=== PATIENT | female | born 1980 | race Caucasian/White ===

== ENCOUNTER → 2016-04-15 | Outpatient (CLI) | payer OTHER ==
--- NOTE | 2016-04-15 14:41 | US ---
April 15, [address] Caldwell, Thank you for requesting consultation and a follow up ultrasound for your patient, Mrs. Bebo stanley. As you know, Lizzie is a 35 year-old 2, para 1001. Her due date is 05/21/16 by LMP and first trimester ultrasound. Her current gestational age based on this dating is 34 weeks 6 days. Milan sargent is seen today for a follow up assessment of growth and placenta location. At her last ultrasound s he had a low lying placenta 0.6-1.4 cm from the os. Growth on 03/11 was at the 21st%ile. ULTRASOUND Number of fetuses: 1 Placental location: Anterior with resolution of low lying status. The lowest edge is approximately 2 .1 cm from the internal cervical os. presentation: Cephalic Heart Rate: 144 bpm Cervix: 3.3 cm viewed transvaginally Maximum Vertical Pocket: 3.7 cm Measurements: Biparietal diameter: 76 mm 30 weeks, 5 days Head circumference: 316 mm 35 weeks, 4 days Abdominal circumference: 292 mm 33 weeks, 2 days Femur length: 66 mm 34 weeks, 0 days Humerus length: 55 mm 32 weeks, 0 days Transcerebellar diameter: 46 mm 35 weeks, 0 days Average ultrasound age: 33 weeks, 3 days Estimated weight: 2191 gm weight percentile: 13 % ANATOMY anatomy was previously assessed. Today the following structures were visualized and appeared n ormal: Lateral ventricle, four-chamber view of the heart, left ventricular outlet tract, right ventricular outflow tract, stomach, bladder, and limited views of the kidneys. IMPRESSION: 1. Intrauterine at 34 weeks, 6 days; ANDRADE of 05/21/16. 2. growth is appropriate size for dates. 3. anatomy was previously assessed and today's ultrasound continues to provide reassurance of normal appearing anatomy. 4. Normal amniotic fluid volume 5. Anterior placenta; resolution of low lying RECOMMENDATIONS: I was pleased to review today's ultrasound with your patient. I reassured her that growth is normal at the 13%ile for this gestational age. The amniotic fluid volume is normal. We performed a review of the anatomy which was limited by gestational age, position and acoustic shadowing, but no overt abnormalities were noted. A transvaginal ultrasound was used to better evaluate placenta location to the cervix. The lowest ed ge is at least 2 cm from the os, making it possible for a vaginal attempt. Future ultrasound and consultation is available at your discretion. Thank you for allowing us the opportunity to evaluate your patient. Should you have any further ques tions or concerns please do not hesitate to contact me. Approximately 15 minutes were spent with the patient and 10 minutes were spent in face to face consu ltation. Marizol Lawson MD [employer] Worker Maternal Medicine Diagnosis Department of Obstetrics & Gynecology [facility]
--- NOTE | 2016-04-15 16:51 | US ---
Obstetric Ultrasound History: 35-year-old with low-lying placenta, estimated gestational age of 34 weeks 6 days and EDC o f May 21, 2016. Comparison: OB ultrasound March 11, 2016. Findings: Number: 1 Presentation: Vertex Placental location: Anterior, with interruption of the placenta approximately 2.1 cm superior to the internal os. No previa. Cervix: Closed, measuring 3.3 cm transvaginally Maximum vertical pocket: 3.7 cm Biometry: Biparietal diameter: 76 mm 30 weeks, 5 days Head circumference: 316 mm 35 weeks, 4 days Abdominal circumference: 292 mm 33 weeks, 2 days Femur length: 66 mm 34 weeks, 0 days Humerus length: 55 mm 32 weeks, 0 days Transcerebellar diameter: 46 mm 35 weeks, 0 days Average ultrasound age: 33 weeks, 3 days EDC based on today's average ultrasound age: May 31, 2016 Estimated weight is 2191 gms +/- 320 gms. The estimated weight percentile is 13% based on previous dating (previously 21%). Detailed anatomic survey was previously performed and is not repeated. heart rate is 144. The lateral ventricle, four-chamber heart, outflow tracts, left-sided stomach, and bladder are visu alized and normal. Impression: 1. Living hooper . Size concordant with dates. 2. Anterior placenta with interval resolution of low lying status. Please see separate dictation for consultation performed by Marizol Lawson MD, the same day.
== END ==
LOC: FIMAGING 13:51
PROVIDERS: ATTEND Obstetrics & Gynecology
DX: O44.43 Low lying placenta NOS or without hemorrhage, third trimester (principal); Z3A.34 34 weeks gestation of pregnancy

== ENCOUNTER 2016-04-30 09:47 | Inpatient (IN) | payer OTHER ==
--- NOTE | 2016-04-30 12:07 | US ---
Dear Dr. Caldwell, Thank you for sending your patient, Lizzie Small, to us for a follow-up US to assess interval g rowth. As you know, the patient is a 35 y.o. G2, P1001 at 37 weeks and 0 days with an EDC of 05/21/16 based on LMP and first trimester ultrasound. Her is complicated by measuring size less than dates on her last clinic appointment. Additionally, the patient reports an elevated blood pressure i n clinic yesterday, 140/96. She denies any headaches, scotomata, or RUQ pain. She reports having a re assuring NST in your office yesterday. Today, her blood pressure is elevated at 139/90. The patient denies any uterine contractions, vaginal bleeding, or loss of fluid. She reports excellen t movement. Today, she is without complaints. US FINDINGS: Number of fetuses: 1 Placental location: Anterior, no previa presentation: Cephalic Cervix: 1.9 cm, transabdominally MVP: 3.6 cm TRANG: 5.1 cm Measurements: Biparietal diameter: 81 mm, 2 weeks 3 days Head circumference: 312 mm, 5 weeks 0 days Abdominal circumference: 310 mm, 5 weeks 0 days Femur length: 69 mm, 35 weeks 2 days Humerus length: 57 mm, 3 weeks 0 days Transcerebellar diameter: 48 mm, 36 weeks 0 days Cerebral Lateral Ventricle: 4 mm Cisterna Magna: 4 mm Heart Rate: 149 bpm Average ultrasound age: 34 weeks 3 days Estimated weight: 2504 g weight percentile: 9 % Anatomy: anatomy was previously assessed. Today the following structures were visualized and appeared n ormal: lateral ventricles, posterior fossa, 4CH view, stomach, kidneys, and bladder. Dopplers: Color and spectral analysis was performed. Umbilical Artery 1: S/D ratio 2.6, Normal Umbilical Artery 2: S/D ratio 3.3, At the 95%ile for gestational age Umbilical Vein: No pulsations, Normal Middle Cerebral Artery: -- PI: 1.1 -- CP Ratio: 1.4, Normal IMPRESSION: 1. IUGR: Today, the fetus is in the 9th percentile for gestational age. Doppler assessment is signif icant for one umbilical artery having increased resistance in the 95%ile for gestational age. Resista nce in the second umbilical artery is normal. There is no evidence of brain sparing. The amniotic flu id volume measures 5 cm which is at the lower limits of normal for gestational age. Given the borderl ine abnormal Doppler finding and amniotic fluid volume, I recommend delivery due to gestational age o f 37 weeks. 2. Elevated Blood Pressures: The patient has now had 2 mild range blood pressures >6 hours apart and meets criteria for gestational hypertension. Labs and urine protein testing are needed to exclude pre eclampsia without severe features. Based on a gestational age of 37+0 weeks, I recommend delivery. Given the absence of severe features and reassuring movement on US, the patient was allowed to return home to arrange child & adolescent psychiatrist. She will return to the hospital in the next 4-6 hours for inductio n of labor. A detailed message was left with your office regarding this plan and the above recommenda tions. Thank you again for sending this patient to see us today. Approximately 15 minutes were spent with th is patient today with 12 and minutes of this time spent in direct face to face counseling regarding yaneth cyr's US findings and our recommendations. Please contact me with any questions at . Peyton Valera MD Maternal- Medicine
[2016-04-30] MEDS ORDERED: OXYTOCIN/RINGERS LACTATE 1,000 ML IV PRN (13:07)
[2016-04-30] MEDS ORDERED: AMPICILLIN SODIUM 2 GM in NS 100 ML IV ONE (13:07)
[2016-04-30] MEDS ORDERED: LR 1,000 ML IV PRN ×2 (13:07)
[2016-04-30] MEDS ORDERED: MINERAL OIL 60 ML OIL TP PRN (13:07)
[2016-04-30] MEDS ORDERED: TERBUTALINE SULFATE 1 MG/ML VIAL IV PRN (13:07)
[2016-04-30] MEDS ORDERED: LIDOCAINE 1% 30 ML SDV SC PRN (13:07)
[2016-04-30] MEDS ORDERED: EPSOM SALT 454 GM TP PRN (13:07)
[2016-04-30] MEDS ORDERED: LR 500 ML IV PRN (14:02)
[2016-04-30 14:32] LABS: % IMMATURE GRANULYOCYTES 0.5 % (0.0-1.1); ABSOLUTE IMMATURE GRANULOCYTES 0.06 10^3/uL (0.00-0.10); ADD DIFF? NO; ADD MORPH? NO; ADD SCAN? NO; ATYPICAL LYMPHOCYTE FLAG 0 (0-99); FRAGMENT RBC FLAG 0 (0-99); HEMATOCRIT 39.6 % (38.0-47.0); HEMOGLOBIN 14.1 g/dL (12.6-16.3); LEFT SHIFT FLG 0 (0-99); LIPEMIA HEMOLYSIS FLAG 90 (0-99); MEAN CELL HEMOGLOBIN 32.9 pg (27.9-34.1); MEAN CELL HEMOGLOBIN CONCENTR. 35.6 g/dL (32.4-36.7); MEAN CELL VOLUME 92.3 fL (81.5-99.8); MEAN PLATELET VOLUME 10.6 fL (8.7-11.7); PLATELET CLUMPS FLAG 0 (0-99); PLATELET COUNT 230 10^3/uL (150-400); RED BLOOD CELL COUNT 4.29 10^6/uL (4.18-5.33); RED CELL DISTRIBUTION WIDTH 13.1 % (11.5-15.2)
[2016-04-30] MEDS: OXYTOCIN/RINGERS LACTATE 500 ML IV SCH ×2 (14:45→20:45)
[2016-04-30 14:52] LABS: ALANINE AMINOTRANSFERASE 22 IU/L (9-52); ASPARTATE AMINOTRANSFERASE 18 IU/L (14-46); BILIRUBIN,TOTAL 0.5 mg/dL (0.1-1.4); BILIRUBIN-CONJUGATED 0.5 mg/dL (0.0-0.5); CREATININE 0.5 mg/dL (0.6-1.0); GLOMERULAR FILTRATION RATE > 60; LACTATE DEHYDROGENASE 381 IU/L (313-618); URIC ACID 4.8 mg/dL (2.5-6.8)
--- NOTE | 2016-04-30 17:45 | US ---
Follow-up Obstetric Ultrasound Indication: Size less than dates. Comparison: April 15, 2016 Dr. Peyton Valera was present during imaging. Findings: Biometry: Average gestational age by ultrasound: 34 weeks 3 days with EDC by ultrasound of June 08, 2016. Estimated gestational age by LMP: 37 weeks with an EDC by LMP of May 21, 2016. Number: 1 Presentation: Vertex Placental location: Anterior without previa Cervix: 1.9 cm from transabdominal measurement. Amniotic fluid maximum vertical pocket: 3.6 cm Amniotic fluid index: 5.1 cm (low normal = 6.6 cm) Biparietal diameter: 32 weeks 3 days, 8.07 cm Head circumference: 35 weeks, 31.24 cm Abdominal circumference: 35 weeks, 30.97 cm Femur length: 35 weeks 2 days, 6.86 cm Humerus length: 33 weeks, 5.67 cm Transcerebellar diameter: 36 weeks, 4.82 cm Estimated weight is 2504 gms (5 lbs. 8 oz.). The estimated weight is at the 9th percentil e based on LMP. On the previous study the fetus is at the 13th percentile for weight with respect to LMP. Limited Anatomy Survey: Supratentorial brain: Normal Posterior fossa: Normal Heart: Four chamber heart with normal interventricular septum heart rate of 149 bpm. Stomach: Normal Kidneys: Normal, no pyelectasis Bladder: Normal Umbilical Doppler: Umbilical artery #1: The S/D ratio ranges between 2.5 and 2.6 Umbilical artery #2: The S/D ratio ranges between 2.4 and 3.3 Umbilical vein: Normal nonpulsatile flow. The 50th and 95th percentile for gestational age of 37 weeks are 2.34 and 3.34, respectively. Doppler studies: Peak systolic velocity (PSV) Middle cerebral artery: 74 cm/sec This is equivalent to 1.35 multiples of the median for gestational age and is within the normal range . The median PSV for this gestational age is 55 cm/sec. Pulsatility index is 1.10 Impression: 1. Living hooper in vertex presentation. 2. Mild IUGR suspected. 3. Unremarkable limited anatomy. No anomalies detected. 4. One of the 2 umbilical artery S/D ratios is at the 95th percentile. 5. Pulsatility index of the MCA is borderline low. The peak systolic velocity of the MCA, however, is within normal limits.
--- NOTE | 2016-04-30 18:17 | OBPROG ---
OBG Progress Note Assessment/Plan: Assessment: Pt is a 35 y/o at 37+0 weeks EGA admitted for IOL for IUGR (EFW 2500 gms @ 9%), oligohydramnios and GHTN: Plan: 1) Labor: Progressing well, garcia bulb out, s/p AROM just now w/ blood noted. Difficult to see if fluid was clear, will monitor, no signs of meconium. Some blood was present from garcia bulb placement, likely from hx of low lying placenta. Will monitor closely. 2) status reassuring 3) GBS positive on ampicillin 4) Pain: No issues 04/30/16 18:18 Subjective: Pt is feeling contractions q3-4 minutes, no bleeding/LOF. Objective: 04/30/16 14:20 04/30/16 14:20 Patient ABO/Rh A POSITIVE 04/30/16 14:20 Uric Acid 4.8 mg/dL (2.5-6.8) 04/30/16 14:20 Total Bilirubin 0.5 mg/dL (0.1-1.4) 04/30/16 14:20 Conjugated Bilirubin 0.5 mg/dL (0.0-0.5) 04/30/16 14:20 Unconjugated Bilirubin 0.0 mg/dL (0.0-1.1) 04/30/16 14:20 AST 18 IU/L (14-46) 04/30/16 14:20 ALT 22 IU/L (9-52) 04/30/16 14:20 Lactate Dehydrogenase 381 IU/L (313-618) 04/30/16 14:20 - SVE Dilation (cm): 4 Effacement (%): 50 Station: -2 Current Contraction Pattern: Irregular, Other (Specify) (difficult to visualize on tocometer) FHR (bpm): 140 FHR Pattern Variability: Moderate FHR Category: 1 Membranes: AROM Amniotic Fluid Color: Bloody ICD10 Worksheet Patient Problems: Problems Problem Status Diagnosed Gestational hypertension Acute IUGR (intrauterine growth restriction) Acute Oligohydramnios antepartum Acute - ICD10 Problem Qualifiers (1) IUGR (intrauterine growth restriction) (2) Oligohydramnios antepartum Qualifiers: Fetus number: single or unspecified fetus Trimester: third trimester Qualified Description: Oligohydramnios, antepartum, third trimester, not applicable or unspecified fetus Qualifier Code(s): (O41.03X0) Oligohydramnios, third trimester, not applicable or unspecified (3) Gestational hypertension Qualifiers: Trimester: third trimester Qualified Description: -induced hypertension, third trimester Qualifier Code(s): (O13.3) Gestational [ -induced] hypertension without significant proteinuria, third trimester
[2016-04-30] MEDS: AMPICILLIN SODIUM 1 GM in NS 100 ML IV SCH ×2 (18:33→21:59)
[2016-04-30] MEDS ORDERED: LIDOCAINE 1% 30 ML SDV ONE (18:47)
[2016-04-30] MEDS ORDERED: MISOPROSTOL 200 MCG TAB ONE (18:48)
[2016-04-30] MEDS ORDERED: AMMONIA AROMATIC 1 EACH AMP IH ONE (18:48)
[2016-04-30] MEDS ORDERED: TERBUTALINE SULFATE 1 MG/ML VIAL ONE (18:48)
[2016-04-30] MEDS ORDERED: OXYTOCIN 10 UNIT/ML VIAL ONE (18:48)
[2016-04-30] MEDS ORDERED: CEFAZOLIN 2 GM/DEXTROSE/100 ML BAG IV ONE (19:53)
[2016-04-30] MEDS ORDERED: morphINE PF 5 MG/10 ML INJ ONE (19:58)
[2016-04-30] MEDS ORDERED: fentaNYL 100 MCG/2 ML INJ ONE (19:58)
[2016-04-30] MEDS ORDERED: CITRIC ACID/SODIUM CITRATE 30 ML UDCUP PO ONE (20:00)
[2016-04-30] MEDS ORDERED: ceFAZolin 2 GM/DEXTROSE 100 ML IV ONE (20:00)
[2016-04-30] MEDS ORDERED: FAMOTIDINE 20 MG/NACL 50 ML IV ONE (20:00)
--- NOTE | 2016-04-30 20:10 | OBPROC ---
- Delivery Pre-op Diagnoses: 1) IUP at 37 weeks, 2) IUGR, 3) Oligo, 4) GHTN, 5) NRFHT Post-op Diagnoses: liu Procedure: Primary, Low Transverse Surgeon: Fatoumata Caldwell Air Valve Repairer: Latanya Mandujano Anesthesiologist: Romaine Wright Anesthesia: Spinal Complications: Uterine Atony Findings: Adherent placenta; uterine atony; normal tubes and ovaries Specimen(s)/Path: Placenta IV Fluid (ml): 1,500 EBL: 1000 cc Drains: Other (Specify) (garcia to gravity) - Conway Info A Delivery Date: 04/30/16 Delivery Time: 20:37 Sex of : Female [place] Weight (gm): 2194 g Score (1 Min): 8 Score (5 Min): 9
[2016-04-30] MEDS ORDERED: ONDANSETRON 4 MG/2 ML VIAL ONE (20:33)
[2016-04-30] MEDS ORDERED: PHENYLEPHRINE HCL 100 MCG/ML SYR ONE (20:33)
[2016-04-30] MEDS ORDERED: epHEDrine SULFATE 10 MG/ML SYR ONE (20:33)
[2016-04-30] MEDS ORDERED: HEMABATE 250 MCG/1 ML AMP IM ONE ×2 (20:47→22:30)
[2016-04-30] MEDS ORDERED: ACETAMINOPHEN 325 MG TAB PO PRN (21:27)
[2016-04-30] MEDS ORDERED: PROMETHAZINE HCL 25 MG/ML INJ IVP PRN (21:27)
[2016-04-30] MEDS ORDERED: SIMETHICONE 80 MG TAB CHEW PO PRN (21:27)
[2016-04-30] MEDS ORDERED: ONDANSETRON 4 MG/2 ML VIAL IVP PRN (21:54)
[2016-04-30] MEDS ORDERED: PHENYLEPHRINE HCL 100 MCG/ML SYR IVP PRN (21:54)
[2016-04-30] MEDS ORDERED: MEPERIDINE 25 MG/ML SYR IVP PRN (21:54)
[2016-04-30] MEDS ORDERED: fentaNYL 100 MCG/2 ML INJ IVP PRN (21:54)
[2016-04-30] MEDS ORDERED: NALOXONE HCL 0.4 MG/ML INJ IVP PRN (21:54)
[2016-04-30] MEDS ORDERED: HYDROmorphONE/DILAUDID 1 MG/ML SYR IVP PRN (21:54)
--- NOTE | 2016-04-30 22:03 | PREANESOB ---
Obstetric Pre-Anesthesia Info - General Info Proposed Procedure: C/S NPO Start Time: 16:00 : 2 Para: 1 - Info Status: IUGR FHR Pattern: Non-reassuring - Labor Status Cervical Dilation per last OB SVE: 4 Station per last OB SVE: -2 Amniotic Fluid Color: Bloody Pitocin: In Use Section History: Primary Indications for Current Section: Non-reas. Status Labor Epidural: No Anesthesia Allergies/Adverse Reactions: Allergy/AdvReac Type Severity Reaction Status Date / Time No Known Allergies Allergy Unverified 07/27/12 18:32 Home Medications: Medication Instructions Recorded Aspirin [Aspirin 81mg (*)] 81 mg PO DAILY 04/30/16 Fiber Choice 04/30/16 Vit27&Calcium/Iron/FA 1 each PO DAILY 04/30/16 [ Rx 1 Tablet (RX)] Visit Medications: Generic Name Dose Route Start Last Admin Trade Name Freq PRN Reason Stop Dose Admin Acetaminophen 325 - 650 mg 04/30/16 21:27 Tylenol PO 10/27/16 21:26 Q3HRS PRN Pain, Mild Acetaminophen/Hydrocodone Bitart 1 - 2 tab 04/30/16 21:27 Hillman 5/325 PO 05/10/16 21:26 Q4HRS PRN Pain, Moderate Docusate Sodium 100 mg 04/30/16 21:27 Colace PO 10/27/16 21:26 BID PRN Constipation Ephedrine Sulfate 10 - 20 mg 04/30/16 21:54 Ephedrine Sulfate IV 04/30/16 22:55 Q5M PRN Hypotension Fentanyl 25 - 50 mcg 04/30/16 21:54 Sublimaze IVP 04/30/16 22:55 Q5M PRN Short acting pain control Hydromorphone HCl 0.2 - 0.4 mg 04/30/16 21:54 Dilaudid IVP 04/30/16 22:55 Q10M PRN Pain, Severe Unable to Take PO Lactated Ringer's 1,000 mls @ 0 mls/hr 04/30/16 13:07 04/30/16 14:41 Lr IV 10/27/16 13:06 1,000 mls PRN PRN Administration SEE PROTOCOL CONDITIONS Protocol Per Protocol Oxytocin/Lactated Ringer's 1,000 mls @ 150 mls/hr 04/30/16 13:07 Pitocin 20 Units/Lr (Premix) IV PRN PRN Post- bleeding Ampicillin Sodium 1 gm/ Sodium 100 mls @ 200 mls/hr 04/30/16 17:09 04/30/16 18: 33 Chloride IV 05/30/16 17:08 100 mls Q4H DONELL Administration Protocol Lactated Ringer's 1,000 mls @ 0 mls/hr 04/30/16 13:07 Lr IV 10/27/16 13:06 PRN PRN SEE PROTOCOL CONDITIONS Protocol Per Protocol Lactated Ringer's 500 mls @ 500 mls/hr 04/30/16 14:02 Lr IV PRN PRN Maternal Hypotension Oxytocin/Lactated Ringer's 500 mls @ 0 mls/hr 04/30/16 14:30 04/30/16 14:45 Pitocin 30 Units/Lr (Premix) IV 10/27/16 14:29 500 mls CONT DONELL Administration Protocol Per Protocol Oxytocin/Lactated Ringer's 500 mls @ 500 mls/hr 05/01/16 21:00 Pitocin 30 Units/Lr (Premix) IV 05/01/16 21:59 EDNOW ONE Ibuprofen 600 mg 04/30/16 13:07 Motrin PO 10/27/16 13:06 Q6HRS PRN post , inflammation Ketorolac Tromethamine 30 mg 04/30/16 21:27 Toradol IVP 05/05/16 21:26 Q6HRS PRN Pain, Inflammatory Magnesium Sulfate 454 gm 04/30/16 13:07 Epsom Salt TP 10/27/16 13:06 PRN PRN Perineal Discomfort Meperidine HCl 12.5 - 25 mg 04/30/16 21:54 Demerol 25 Mg/Ml Syringe IVP 04/30/16 22:55 Q10M PRN shivering/rigors Naloxone HCl 0.1 mg 04/30/16 21:54 Narcan IVP 04/30/16 22:55 Q2M PRN Respiratory Depression Ondansetron HCl 4 mg 04/30/16 21:54 Zofran IVP 04/30/16 22:55 ONCE PRN Nausea/Vomiting, Can't Take PO Phenylephrine HCl 100 mcg 04/30/16 21:54 Rashad-Synephrine IVP 04/30/16 22:55 Q1M PRN Hypotension Promethazine HCl 25 mg 04/30/16 21:27 Phenergan Injection IVP 10/27/16 21:26 Q6HRS PRN Nausea/Vomiting, Use 1st Simethicone 80 mg 04/30/16 21:27 Mylicon PO 10/27/16 21:26 .TIDMEALS AND HS PRN Gas Terbutaline Sulfate 0.25 mg 04/30/16 13:07 Brethine IV 10/27/16 13:06 ONCE PRN Tachysystole Discontinued Medications Generic Name Dose Route Start Last Admin Trade Name Freq PRN Reason Stop Dose Admin Ammonia (Aromatic Spirit) Confirm 04/30/16 18:48 Ammonia Aromatic Administered 04/30/16 18:49 Dose 1 each IH .STK-MED ONE Carboprost Tromethamine Confirm 04/30/16 20:47 Hemabate Administered 04/30/16 20:48 Dose 250 mcg IM .STK-MED ONE Cefazolin Sodium/Dextrose Confirm 04/30/16 19:53 Ancef 2 Gm (Premix) Administered 04/30/16 19:54 Dose 2 gm IV .STK-MED ONE Citric Acid/Sodium Citrate 30 ml 04/30/16 20:00 Bicitra PO 04/30/16 20:01 ONCALL ONE Ephedrine Sulfate Confirm 04/30/16 20:33 Ephedrine Sulfate Administered 04/30/16 20:34 Dose 10 mg .ROUTE .STK-MED ONE Fentanyl Confirm 04/30/16 19:58 Sublimaze Administered 04/30/16 19:59 Dose 100 mcg .ROUTE .STK-MED ONE Ampicillin Sodium 2 gm/ Sodium 110 mls @ 220 mls/hr 04/30/16 13:07 04/30/16 14: 40 Chloride IV 04/30/16 13:36 110 mls ONCE ONE Administration Cefazolin Sodium/Dextrose 100 mls @ 200 mls/hr 04/30/16 20:00 Ancef 2 Gm (Premix) IV 04/30/16 20:29 ONCE ONE Famotidine/Sodium Chloride 50 mls @ 200 mls/hr 04/30/16 20:00 Pepcid 20 Mg (Premix) IV 04/30/16 20:14 ONCALL ONE Lidocaine HCl 30 ml 04/30/16 13:07 Lidocaine Hcl 1% SC 04/30/16 19:07 ONCE PRN Episiotomy Lidocaine HCl Confirm 04/30/16 18:47 Lidocaine Hcl 1% Administered 04/30/16 18:48 Dose 30 ml .ROUTE .STK-MED ONE Mineral Oil 30 ml 04/30/16 13:07 Mineral Oil TP 04/30/16 19:07 ONCE PRN Perineal massage Misoprostol Confirm 04/30/16 18:48 Cytotec Administered 04/30/16 18:49 Dose 1,000 mcg .ROUTE .STK-MED ONE Morphine Sulfate Confirm 04/30/16 19:58 Morphine Pf 5 Mg/10 Ml Administered 04/30/16 19:59 Dose 5 mg .ROUTE .STK-MED ONE Ondansetron HCl Confirm 04/30/16 20:33 Zofran Administered 04/30/16 20:34 Dose 4 mg .ROUTE .STK-MED ONE Oxytocin Confirm 04/30/16 18:48 Pitocin Administered 04/30/16 18:49 Dose 30 unit .ROUTE .STK-MED ONE Phenylephrine HCl Confirm 04/30/16 20:33 Rashad-Synephrine Administered 04/30/16 20:34 Dose 1,000 mcg .ROUTE .STK-MED ONE Terbutaline Sulfate Confirm 04/30/16 18:48 Brethine Administered 04/30/16 18:49 Dose 1 mg .ROUTE .STK-MED ONE - Anesthesia History Response to Local Anesthetics: Normal Anesthesia & Operative History: No Prior Problems Family Anesthesia History: Negative - Social History Substance Use/Abuse: Denies - Focused Exam Height/Weight (Nursing): Height 172.72 cm Weight 87.997 kg Respiratory: lungs clear ASA Status: II, E Labs: 04/30/16 14:20 04/30/16 14:20 Patient ABO/Rh A POSITIVE 04/30/16 14:20 Uric Acid 4.8 mg/dL (2.5-6.8) 04/30/16 14:20 Total Bilirubin 0.5 mg/dL (0.1-1.4) 04/30/16 14:20 Conjugated Bilirubin 0.5 mg/dL (0.0-0.5) 04/30/16 14:20 Unconjugated Bilirubin 0.0 mg/dL (0.0-1.1) 04/30/16 14:20 AST 18 IU/L (14-46) 04/30/16 14:20 ALT 22 IU/L (9-52) 04/30/16 14:20 Lactate Dehydrogenase 381 IU/L (313-618) 04/30/16 14:20 - Plan Anesthetic Plan: SAB Consent Signed and on Chart: Yes
--- NOTE | 2016-04-30 22:04 | POSTANESTH ---
Post Anesthetic Evaluation Cardiovascular Status: Normal, Stable Respiratory Status: Normal, Stable Level of Consciousness/Mental Status: Can Participate in Eval, Alert and Oriented Pain Control: Adequate, Prn Tx Ordered Nausea/Vomiting Control: Adequate, Prn Tx Ordered Complications Possibly Related to Anesthesia: None Noted
[2016-04-30] MEDS ORDERED: KETOROLAC 30 MG/1 ML SDV ONE (22:23)
[2016-04-30] MEDS: KETOROLAC 30 MG/1 ML SDV IVP PRN (22:26)
[2016-04-30] MEDS ORDERED: MISOPROSTOL 200 MCG TAB PR ONE (22:30)
--- NOTE | 2016-04-30 22:40 | GHP ---
[f rep st] HISTORY AND PHYSICAL DATE OF ADMISSION: 04/30/2016 CHIEF COMPLAINT: None. HISTORY OF PRESENT ILLNESS: The patient is a 35-year-old, 2, para 1, female at 37 weeks and 0 days estimated gestational age with an EDC of 05/21/2016 based on LMP and 1st trimester ultrasound, who was referred for admission for induction of labor after she had an ultrasound today showing intr auterine growth restriction as well as oligohydramnios. She had a history of evolving gestational hy pertension and her last growth ultrasound was the 13th percentile. On the day of admission, the repe at ultrasound showed an estimated weight of 2504 g which was the 9th percentile, as well as an TRANG of 5 cm. The patient was admitted and counseled regarding the multiple diagnoses and the plan fo r induction of labor. She had no leakage of fluid, vaginal bleeding, or contractions and reported go od movement. She denied any headaches, visual changes, or right upper quadrant pain. PAST MEDICAL HISTORY: Skiing injury. PAST SURGICAL HISTORY: Bunionectomy and osteotomy, lateral compartment release. OBSTETRICAL HISTORY: History of vaginal assisted vacuum delivery in August 2012, delivering an 8 pound, 1 ounce baby at 41 weeks and 3 days estimated gestational age. SOCIAL HISTORY: Patient is and denies any tobacco, alcohol, or drug use. ALLERGIES: No known drug allergies. MEDICATIONS: vitamin and aspirin 81 mg tablets. COURSE: Significant for the following: Normal genetic screening, gestational hypertension, history of anterior placenta previa which resolved, status post the flu and Tdap vaccines, umbilical hernia, which was seen in consultation with General Surgery, initially by Dr. Shaylee Benítez and then by Dr. Jennifer Suh. LABS: Blood type A positive, antibody screen negative, hematocrit 41, Pap normal, varicella immune, rubella immune, RPR nonreactive, urine culture negative, hepatitis B surface antigen negativ e. HIV negative. Gonorrhea and chlamydia negative, 1-hour GTT normal and GBS positive. PHYSICAL EXAMINATION: VITAL SIGNS: Blood pressure 134/76, heart rate 96, respiratory rate 14, O2 sa turation 95%, temp 36.5 degrees Celsius. heart rate tracins, reactive and reassuring. Tocometer contractions: None present. GENERAL: No acute distress. CARDIOVASCULAR: Regular rate a nd rhythm. CHEST: Clear to auscultation bilaterally. ABDOMEN: Gravid and nontender. CERVIX: 1 c m, long and high. LABS: PIH labs normal with hematocrit of 39, platelets 230, creatinine 0.5, normal liver function te sts. ASSESSMENT: Patient is a 35-year-old, 2, para 1, female at 37 weeks and 0 days estimated ges tational age with history of gestational hypertension, intrauterine growth restriction, and oligohydr amnios. PLAN: 1. Admit to Labor and Delivery for induction of labor. 2. Labor induction: A Bender bulb was placed easily and inflated with 40 cc of normal saline. There was some dark blood that came out through the catheter during placement, and the catheter was clampe d. There was no bright red vaginal bleeding. The patient tolerated it well. Will initiate Pitocin for induction of labor and keep the Pitocin at a max of 10 milliunits per minute while the Bender bulb was in place. 3. status is currently reassuring. 4. GBS positive. We will initiate ampicillin for prophylaxis. 5. Gestational hypertension. PIH labs are normal on admission, so we will continue to follow closel y and repeat labs if any severe symptoms develop. /[id number]/MODL
[2016-05-01] MEDS: KETOROLAC 30 MG/1 ML SDV IVP PRN ×2 (05:39→11:42)
[2016-05-01 05:55] LABS: % IMMATURE GRANULYOCYTES 0.7 % (0.0-1.1); ABSOLUTE IMMATURE GRANULOCYTES 0.11 10^3/uL (0.00-0.10); ADD DIFF? NO; ADD MORPH? NO; ADD SCAN? NO; ATYPICAL LYMPHOCYTE FLAG 10 (0-99); FRAGMENT RBC FLAG 0 (0-99); HEMATOCRIT 32.2 % (38.0-47.0); HEMOGLOBIN 11.4 g/dL (12.6-16.3); LEFT SHIFT FLG 0 (0-99); LIPEMIA HEMOLYSIS FLAG 90 (0-99); MEAN CELL HEMOGLOBIN 33.2 pg (27.9-34.1); MEAN CELL HEMOGLOBIN CONCENTR. 35.4 g/dL (32.4-36.7); MEAN CELL VOLUME 93.9 fL (81.5-99.8); MEAN PLATELET VOLUME 10.4 fL (8.7-11.7); PLATELET CLUMPS FLAG 0 (0-99); PLATELET COUNT 186 10^3/uL (150-400); RED BLOOD CELL COUNT 3.43 10^6/uL (4.18-5.33); RED CELL DISTRIBUTION WIDTH 13.2 % (11.5-15.2)
--- NOTE | 2016-05-01 08:07 | GOP ---
[f rep st] OPERATIVE REPORT DATE OF OPERATION: 04/30/2016 SURGEON: Fatoumata Caldwell MD WELDING MANAGER: Latanya Neal CNM. ANESTHESIA: Spinal. ANESTHESIOLOGIST: Romaine Wright MD. PREOPERATIVE DIAGNOSIS: 1. Intrauterine at 37 weeks gestation. 2. Gestational hypertension. 3. Intrauterine growth restriction. 4. Oligohydramnios. 5. Non-reassuring heart rate tracing. POSTOPERATIVE DIAGNOSIS: 1. Intrauterine at 37 weeks gestation. 2. Gestational hypertension. 3. Intrauterine growth restriction. 4. Oligohydramnios. 5. Non-reassuring heart rate tracing. PROCEDURE PERFORMED: Primary low transverse section. FINDINGS: 1. Delivered a female infant, weighing 2194 g, with Apgars of 8 and 9 , with a double nuchal cord. The baby did have an excellent spontaneous cry after delivery. 2. Uterine atony treated intraoperatively with Hemabate, Cytotec, and Pitocin. SPECIMENS: Placenta. ESTIMATED BLOOD LOSS: 1000 cc. INDICATIONS: The patient is a 35-year-old, 2, para 1 female, admitted for induction of labor at 37 weeks and 0 days estimated gestation, for diagnosis of IUGR, gestational hypertension, and oligohydramnios. The patient' s labor induction was initiated with a Bender bulb and Pitocin. She then had artificial rupture of membranes. She did have some bleeding during this time, but it was mostly dark red bleeding and slightly more than average, but not clinically unstable. She had periods where there was minimal bleeding as well. After breaking her bag of water around 6:30 p.m., the patient's baby started to show decelerations on the heart rate tracing that were initially mild to moderate; however, they then proceeded to become more severe with variable decelerations to the 60s. Over the next 10 minutes, the decelerations became more recurrent and the patient was counseled regarding the need for placing internal monitors. Internal monitors were placed and the baby continued to have severe prolonged decels down to a soren of the 50s. Resuscitation maneuvers were initiated including stopping the Pitocin, O2 per nasal cannula, IV fluid bolus, terbutaline, and the decels continued. The decision was made to proceed with a section, as her cervix had also not changed and she was not close to delivering. After all these resuscitation maneuvers were initiated, the baby's heart rate over the next 5-10 minutes slowly improved; however, the variable decels continued, and decision was made to continue with the plan for section, due to the concern that the baby would not tolerate labor any further. The patient had been counseled extensively and she agreed to proceed. DESCRIPTION OF PROCEDURE: The patient was taken to the operating room where spinal anesthesia was found to be adequate. Patient was prepared and draped in normal sterile fashion, in the dorsal supine position, with a left tilt. After confirmation of adequate anesthesia, and administration of Ancef 2 g IV, a low transverse skin incision was made and carried down to the level of the fascia, using the usual Pfannenstiel technique. The fascia was incised in the midline, extended laterally bilaterally with Chawla scissors. The fascia was dissected off the rectus muscles superiorly and inferiorly. The peritoneal cavity was entered bluntly and stretched open. A bladder blade was placed. An incision was made in the vesicouterine peritoneum and extended laterally. A bladder flap was created and the bladder was retracted away from the lower uterine segment. A low transverse uterine incision was made and extended digitally. The edge of the placenta was visualized at the incision, and the baby was delivered below it in the vertex presentation. A double nuchal cord was noted which was reduced after delivery of the head, before delivery of the baby's body. The baby was delivered and had a spontaneous cry. The baby was bulb suctioned and the cord was doubly clamped and cut. The baby was handed off to the waiting nurse practitioner. A segment of cord was obtained for possible cord gases, but was later not sent. Cord blood was obtained. The placenta was then delivered very slowly with uterine massage. During the uterine massage and delivery of the placenta, the anterior surface of the placenta immediately above the incision seemed to be adherent to the wall the uterus abnormally. It took longer than usual to get the placenta delivered, but it finally released. The uterus was then exteriorized on the maternal abdomen and wiped with dry lap sponges to remove all residual membranes. The uterine incision was closed with a running locked stitch of 0 Vicryl. A second imbricating layer was placed using 0 Monocryl. There was some bleeding noted along the left apex which was controlled with an O'Medford stitch and a short segment of a running locked stitch, using the 0 Monocryl. The uterine tone during this time and closure of the uterine incision was poor, and the patient was given additional medications to include the following: Pitocin 30 units in 500 cc of fluid, initially anesthesia was administering Pitocin at a strength of 100 units and 1 L of IV fluids: This was halted after approximately 100 cc had been administered. She was then transitioned to Pitocin at a concentration of 30 units per 500 cc; Hemabate 250 mcg IM; Cytotec 1000 mcg rectally. The uterine tone finally improved and the uterus was placed back in the maternal abdomen. The gutters were wiped with moist lap sponges bilaterally, and the uterine incision was reexamined. There was still some bleeding noted along the apex so the uterus was exteriorized back on the maternal abdomen, and hemostasis was obtained with use of a ysabxe-mo-viwsl stitch. The uterus was placed back in the maternal abdomen and re-examined closely, and no active bleeding was noted, but there was just some slow oozing noted, and a piece of Surgicel was placed along the incision. The rectus muscle surfaces and fascial surfaces were then examined closely and hemostasis assured. The fascia was then closed with a running nonlocked stitch of #1 Monocryl. The fascia was closed with #1 PDS. The subcutaneous tissue was irrigated with copious amounts of normal saline and reapproximated with interrupted stitches of 2-0 Vicryl, after hemostasis was obtained with the use of the Bovie. The skin was closed with subcuticular stitch of 4-0 Monocryl. Steri-Strips and a bandage dressing was placed. A vaginal Crede exam was performed and small amount of dark blood removed from the vaginal vault, but no active bright red bleeding noted. Of note, there was a large amount of blood on the Chux below the patient. The total EBL approximated at 1000 cc. All sponge, lap, and needle count counts were correct x2. The patient was transferred to PACU in stable and good condition. COMPLICATIONS: Uterine atony and adherent placenta. IV FLUIDS: 1500 cc. URINE OUTPUT: 300 cc. DRAINS: Bender to gravity. /[id number]/MODL MTDD
--- NOTE | 2016-05-01 08:11 | SOAPPROG ---
SOAP Progress Note Assessment/Plan: Assessment: 35 y.o. s/p primary C/S for intolerance of labor. Recovering well with incision CDI. . Plan: Routine / post-op orders. Discontinue garcia catheter, hep lock IV and encourage ambulation. consult. Begin iron supplement BID 05/01/16 08:08 05/01/16 08:10 Subjective: Reports feeling fatigued with minimal vaginal bleeding and good pain control. Incision CDI. infant. Appropriate mood with good support. Objective: Vital Signs Temp Pulse Resp BP Pulse Ox 36.8 C 85 16 121/76 H 95 05/01/16 03:17 05/01/16 05:30 05/01/16 03:17 05/01/16 03:17 05/01/16 05:30 Laboratory Results 05/01/16 05:45 04/30/16 14:20 04/30/16 05/01/16 05/02/16 05:59 05:59 05:59 Intake Total 1425 Output Total 1900 Balance -475 - Time Spent With Patient Time Spent With Patient: 20 minutes - Pending Discharge Pending Discharge Within 24 Hours: No Pending Discharge Within 48 Hours: Yes Pending Discharge Date: 05/03/16 Pending Discharge Time: 11:00 Physical Exam - Physical Exam General Appearance: WD/WN, alert, no apparent distress EENT: normal ENT inspection Neck: non-tender, full range of motion, normal inspection Respiratory: lungs clear, normal breath sounds Cardiac/Chest: regular rate, rhythm Abdomen: non-tender, soft Pelvic Exam: normal external exam Rectal: deferred Back: Normal inspection Skin: normal color, warm/dry Lymphatic: no adenopathy Extremities: normal range of motion, non-tender Neuro/Psych: alert, normal mood/affect, oriented x 3 ICD10 Worksheet Patient Problems: Problems Problem Status Diagnosed Gestational hypertension Acute IUGR (intrauterine growth restriction) Acute Oligohydramnios antepartum Acute
--- NOTE | 2016-05-01 10:09 | POSTANESTH ---
Post Anesthetic Evaluation Cardiovascular Status: Normal, Stable, Similar to Pre-Op Cond Respiratory Status: Normal, Stable, Similar to Pre-op Cond. Level of Consciousness/Mental Status: Can Participate in Eval, Alert and Oriented Pain Control: Adequate, Prn Tx Ordered Nausea/Vomiting Control: Adequate, Prn Tx Ordered Complications Possibly Related to Anesthesia: None Noted Notes: POD#1 s/p LTCS for IUGR/nonreassuring HR. Back site c/d/i, no e/e/e. Block worn off no ill effects. Pt able to stand at bedside. Notes some pruritis, but tolerable. Pain is rated as under control.
[2016-05-01] MEDS: IRON POLYSAC/IRON HEME 28 MG TAB PO SCH ×2 (11:42→19:56)
[2016-05-01] MEDS: HYDROCODONE/APAP 5/325 TAB PO PRN ×2 (16:01→19:56)
[2016-05-01] MEDS: IBUPROFEN 600 MG TAB PO PRN (18:27)
[2016-05-01] MEDS ORDERED: OXYTOCIN/RINGERS LACTATE 500 ML IV ONE (21:00)
[2016-05-02] MEDS: IBUPROFEN 600 MG TAB PO PRN ×4 (00:13→20:22)
[2016-05-02] MEDS: HYDROCODONE/APAP 5/325 TAB PO PRN ×6 (00:13→21:13)
[2016-05-02] MEDS: DOCUSATE SODIUM 100 MG CAP PO PRN ×2 (04:01→20:24)
--- NOTE | 2016-05-02 08:54 | OBPROG ---
OBG Progress Note Assessment/Plan: Assessment: Pt is a 35 y/o POD#2 s/p primary LTCS for NRFHT, GHTN, IUGR/oligo - hemodynamically stable and doing well Plan: 1) Continue routine postop care 2) A+, RI, HCT 32 3) Bowel protocol 4) May consider discharge tomorrow if desired, but due to late delivery, may officially stay until Friday if desired 5) Plan f/u with Dr Caldwell in 1-2 weeks or sooner prn 05/02/16 08:55 Subjective: Pt feeling well, pain well controlled with motrin and norco, ambulating, voiding , passing flatus, lochia diminishing. Breast feeding progressing, may use donor milk today. No complaints. BP's stable. Objective: 05/01/16 05:45 04/30/16 14:20 Patient ABO/Rh A POSITIVE 04/30/16 14:20 Uric Acid 4.8 mg/dL (2.5-6.8) 04/30/16 14:20 Total Bilirubin 0.5 mg/dL (0.1-1.4) 04/30/16 14:20 Conjugated Bilirubin 0.5 mg/dL (0.0-0.5) 04/30/16 14:20 Unconjugated Bilirubin 0.0 mg/dL (0.0-1.1) 04/30/16 14:20 AST 18 IU/L (14-46) 04/30/16 14:20 ALT 22 IU/L (9-52) 04/30/16 14:20 Lactate Dehydrogenase 381 IU/L (313-618) 04/30/16 14:20 Temp Pulse Resp BP Pulse Ox 37.4 C 86 18 119/76 93 05/01/16 20:00 05/01/16 20:00 05/01/16 20:00 05/01/16 20:00 05/01/16 20:00 Uterine Position/Fundal Height: Umbilicus -1 Uterine Tone: Firm - Physical Exam General Appearance: WD/WN, alert, no apparent distress Respiratory: lungs clear Cardiac/Chest: regular rate, rhythm Abdomen: normal bowel sounds, non-tender, soft, other (incision c/d/i) ICD10 Worksheet Patient Problems: Problems Problem Status Diagnosed Gestational hypertension Acute IUGR (intrauterine growth restriction) Acute Oligohydramnios antepartum Acute - ICD10 Problem Qualifiers (1) IUGR (intrauterine growth restriction) (2) Oligohydramnios antepartum Qualifiers: Fetus number: single or unspecified fetus Trimester: third trimester Qualified Description: Oligohydramnios, antepartum, third trimester, not applicable or unspecified fetus Qualifier Code(s): (O41.03X0) Oligohydramnios, third trimester, not applicable or unspecified (3) Gestational hypertension Qualifiers: Trimester: third trimester Qualified Description: -induced hypertension, third trimester Qualifier Code(s): (O13.3) Gestational [ -induced] hypertension without significant proteinuria, third trimester
[2016-05-02] MEDS: IRON POLYSAC/IRON HEME 28 MG TAB PO SCH ×2 (08:55→20:24)
[2016-05-03] MEDS: HYDROCODONE/APAP 5/325 TAB PO PRN ×6 (01:11→21:27)
[2016-05-03] MEDS: IBUPROFEN 600 MG TAB PO PRN ×4 (02:13→21:27)
--- NOTE | 2016-05-03 07:55 | OBGCSDC ---
General Delivery Information - General Info : 2 Para: 2 Delivery Date: 04/30/16 Delivery Time: 20:37 Delivery Physician/CNM: Fatoumata Caldwell Town Marshal: Latanya Mandujano Admission Date: 04/29/16 Labs: Patient ABO/Rh A POSITIVE 04/30/16 14:20 Hct 32.2 % (38.0-47.0) L 05/01/16 05:45 - [place] Info A Weight (gm): 2194 g Sex of : Female Score (1 Min): 8 Score (5 Min): 9 Vaginal - Diagnosis Amniotic Fluid Color: Bloody - Delivery IUP (Weeks): 37 Number of Prior Sections: 0 Indications for Prior Section: Other (Specify) Indications for Current Section: Non-reas. Status Procedures: LTCS Intra-op Complications: Nucal Cord, Uterine Atony EBL: 1000 cc Anesthesia: Spinal Discharge Information - Discharge Information Discharge Medications: Ibuprofen, Iron, Vitamins, Vicodin Complications: primary C/S for non-reassuring heart tones. Double nuchal and uterine atony Condition: Good Instruction/Follow Up: Two Weeks Discharge Physician/CNM: Latanya Mandujano Discharge Date: 05/03/16 Dictated: No
[2016-05-03] MEDS: IRON POLYSAC/IRON HEME 28 MG TAB PO SCH ×2 (08:24→21:27)
[2016-05-03] MEDS: DOCUSATE SODIUM 100 MG CAP PO PRN ×2 (08:24→21:27)
[2016-05-03 13:55] VITALS: RESP 16
[2016-05-04] MEDS: HYDROCODONE/APAP 5/325 TAB PO PRN ×3 (01:06→10:30)
[2016-05-04] MEDS: IBUPROFEN 600 MG TAB PO PRN ×2 (03:45→10:26)
--- NOTE | 2016-05-04 08:19 | OBGCSDC ---
General Delivery Information - General Info : 2 Para: 2 Delivery Date: 04/30/16 Delivery Time: 20:37 Delivery Physician/CNM: Fatoumata Caldwell [place] Custodian: Latanya Mandujano Admission Date: 04/29/16 Labs: Patient ABO/Rh A POSITIVE 04/30/16 14:20 Hct 32.2 % (38.0-47.0) L 05/01/16 05:45 - [place] Info A Weight (gm): 2194 g Sex of : Female Score (1 Min): 8 Score (5 Min): 9 Vaginal - Diagnosis Amniotic Fluid Color: Bloody - Delivery Indications for Prior Section: Non-reas. Status (IUGR patient doing well today and ready for discharge home. Patient has all rx and all questions answered) Procedures: LTCS Intra-op Complications: Nucal Cord, Uterine Atony EBL: 1000 cc Anesthesia: Spinal Discharge Information - Discharge Information Condition: Good Instruction/Follow Up: Two Weeks Discharge Physician/CNM: Gema Lozano Discharge Date: 05/04/16 Dictated: No
[2016-05-04 08:34] VITALS: BP 125/88; PULSE 82; TEMP 97.4; O2SAT 98
[2016-05-04] MEDS: DOCUSATE SODIUM 100 MG CAP PO PRN (10:26)
[2016-05-04] MEDS: IRON POLYSAC/IRON HEME 28 MG TAB PO SCH (10:27)
== END 2016-05-04 12:00 | disposition home or self-care (01) | DRG 765 ==
LOC: FIMAGING 09:47 → FLD 12:20 → FOB 05-01 00:13
PROVIDERS: ADMIT Obstetrics & Gynecology; ATTEND Obstetrics & Gynecology
PROC: 10D00Z1 Extraction of Products of Conception, Low, Open Approach (ICD-10-PCS; principal; 2016-04-30)
PROC: 3E033VJ Introduction of Other Hormone into Peripheral Vein, Percutaneous Approach (ICD-10-PCS; principal; 2016-04-30)
PROC: 10907ZC Drainage of Amniotic Fluid, Therapeutic from Products of Conception, Via Natural or Artificial Opening (ICD-10-PCS; principal; 2016-04-30)
PROC: 0U797ZZ Dilation of Uterus, Via Natural or Artificial Opening (ICD-10-PCS; principal; 2016-04-30)
DX: O76 Abnormality in fetal heart rate and rhythm complicating labor and delivery (principal); O36.5930 Maternal care for other known or suspected poor fetal growth, third trimester, not applicable or unspecified; O41.03X0 Oligohydramnios, third trimester, not applicable or unspecified; O13.3 Gestational [pregnancy-induced] hypertension without significant proteinuria, third trimester; Z37.0 Single live birth; Z3A.37 37 weeks gestation of pregnancy; O99.824 Streptococcus B carrier state complicating childbirth
CPT/HCPCS: J0290; J0690; J1885; J2274; J2370; J2405; J2550; J2590; J3010; J3105

== ENCOUNTER 2016-05-31 11:46 | Day surgery (SDC) | payer OTHER ==
[~2016-05-31 11:46] MED LIST: BUPIVACAINE 0.5% 30 ML SDV ONE; ceFAZolin 2 GM/DEXTROSE 100 ML IV ONE
[2016-05-31] MEDS ORDERED: CEFAZOLIN 2 GM/DEXTROSE/100 ML BAG IV ONE (13:06)
[2016-05-31] MEDS ORDERED: MIDAZOLAM 2 MG/2 ML VIAL ONE (13:30)
[2016-05-31] MEDS ORDERED: LIDOCAINE 2% 5 ML SDV ONE (13:30)
[2016-05-31] MEDS ORDERED: fentaNYL 100 MCG/2 ML INJ ONE (13:31)
[2016-05-31] MEDS ORDERED: PROPOFOL/EMULSION 500 MG/50 ML BOTTLE IV ONE (13:32)
[2016-05-31] MEDS ORDERED: LIDOCAINE 1% 30 ML SDV ONE (13:34)
[2016-05-31] MEDS ORDERED: LR 1,000 ML IV ONE (13:35)
[2016-05-31] MEDS ORDERED: ONDANSETRON 4 MG/2 ML VIAL ONE (13:48)
[2016-05-31] MEDS ORDERED: KETOROLAC 30 MG/1 ML SDV ONE (13:48)
--- NOTE | 2016-05-31 14:30 | GOP ---
DATE OF OPERATION: 05/31/2016 SURGEON: Jennifer Suh MD DASHBOARD DEVELOPER: Juju Michaels, CONSTANTINO ANESTHESIA: Alexander Chacon MD/General. PREOPERATIVE DIAGNOSIS: Umbilical hernia. Incarcerated. POSTOPERATIVE DIAGNOSIS: Umbilical hernia. Incarcerated. PROCEDURE PERFORMED: Umbilical hernia repair. FINDINGS: 5 mm defect with incarcerated omentum. SPECIMENS: None. ESTIMATED BLOOD LOSS: 5 cc. INDICATIONS: The patient is a 35-year-old woman, who developed an incarcerated hernia during her . She ended up having an emergency and we are proceeding with hernia repair. DESCRIPTION OF PROCEDURE: The patient was brought into the operating room, placed supine on the table, and monitored anesthesia care with sedation was performed. Her abdomen was prepped and draped in the usual sterile fashion. I infiltrated the area with 0.5% Marcaine mixed with 1% lidocaine. I made an incision beneath the umbilicus. I came around the umbilicus and detached the stalk from the fascia. There was incarcerated omentum. I excised a small amount of omentum and reduced the remaining omentum. The defect was less than 5 mm. I used 0 Surgilon to close the defect. I created a new umbilicus with 2- 0 Vicryl. I excised a small portion of skin that appeared devitalized. I closed the skin with 3-0 Vicryl followed by 4 Monocryl. Mastisol, Steri-Strips , and a sterile dressing were applied. She was awakened in the operating room, transferred to PACU in stable condition. /[id number]/MODL MTDD
== END 2016-05-31 15:55 | disposition home or self-care (01) ==
LOC: FSGY 11:46
PROVIDERS: ATTEND Surgery
PROC: 0WQF0ZZ Repair Abdominal Wall, Open Approach (ICD-10-PCS; principal; 2016-05-31 14:00)
DX: K42.0 Umbilical hernia with obstruction, without gangrene (principal)
CPT/HCPCS: J0690; J1885; J2250; J2405; J2704; J3010

== ENCOUNTER 2017-09-28 19:41 | Emergency (ER) | payer OTHER ==
[2017-09-28] MEDS ORDERED: ACETAMINOPHEN 325 MG TAB PO ONE (19:55)
--- NOTE | 2017-09-28 20:15 | EDPHY ---
H & P Stated Complaint: FLU LIKE SX/FEVER 102, STIFF NECK Time Seen by Provider: 09/28/17 20:03 HPI/ROS: CHIEF COMPLAINT: Fever, neck pain HISTORY OF PRESENT ILLNESS: 37-year-old previously healthy female presents with fever and neck pain. Onset fatigue and achiness 1 week ago. Fever started today, associated with neck pain. The neck pain is mainly on the left side of her neck and is moderate. Ibuprofen with some relief. No URI or urinary symptoms and no recent mosquito bites. REVIEW OF SYSTEMS: complete 10 point ROS negative except at noted in the HPI - Personal History LMP (Females 10-55): 8-14 Days Ago Current Tetanus Diphtheria and Acellular Pertussis (TDAP): Yes - Medical/Surgical History Hx Asthma: No Hx Chronic Respiratory Disease: No Hx Diabetes: No Hx Cardiac Disease: No Hx Renal Disease: No Hx Cirrhosis: No Hx Alcoholism: No Hx HIV/AIDS: No Hx Splenectomy or Spleen Trauma: No Other PMH: BUNIOECTOMY OSTIOTOMY BOTH FEET,. LATERAL COMPARTMENT RELEASE. UMBILICAL HERNIA, - Social History Smoking Status: Never smoked Alcohol Use: Sober - Physical Exam Exam: General Appearance: Alert, pleasant, nontoxic, smiling Eyes: Pupils equal and round, no conjunctival pallor or injection ENT, Mouth: Mucous membranes moist Neck: Normal inspection, tenderness over the left paraspinous musculature, full range of motion of neck, neck flexion causes left-sided neck pain, no meningismus Respiratory: Lungs are clear to auscultation Cardiovascular: Regular rate and rhythm Gastrointestinal: Abdomen is soft and nontender Neurological: Alert, oriented x3, cranial nerves II through XII intact, motor 5 /5, sensory intact to light touch, normal gait. Skin: Warm and dry, no rash Extremities: Normal inspection Psychiatric: Mood and affect normal Constitutional: Initial Vital Signs Temperature (C) 37.3 C 09/28/17 19:47 Heart Rate 98 09/28/17 19:47 Respiratory Rate 16 09/28/17 19:47 Blood Pressure 145/84 H 09/28/17 19:47 O2 Sat (%) 98 09/28/17 19:47 O2 Delivery Mode Room Air Allergies/Adverse Reactions: No Known Allergies Allergy (Unverified 07/27/12 18:32) Home Medications: Medication Instructions Recorded Vit27&Calcium/Iron/FA 1 each PO DAILY 04/30/16 [] Medical Decision Making ED Course/Re-evaluation: This patient presents with a week-long history of myalgias and fatigue, now with fever and neck pain. She is well-appearing and I do not suspect meningitis in this patient. Likely viral syndrome. 2109: feels better after Tylenol. Persistent body aches, minimal neck pain. Warning signs discussed. Will alternate Tylenol and ibuprofen, return if worse. Differential Diagnosis: Differential diagnosis includes pyelonephritis, cholecystitis, influenza, cellulitis, pneumonia, abscess, meningitis. - Data Points Laboratory Results: Laboratory Results 09/28/17 20:23 09/28/17 20:23 09/28/17 09/28/17 09/28/17 20:30 20:23 20:23 WBC 5.04 10^3/uL 10^3/uL (3.80-9.50) RBC 4.58 10^6/uL 10^6/uL (4.18-5.33) Hgb 14.1 g/dL g/dL (12.6-16.3) Hct 40.3 % % (38.0-47.0) MCV 88.0 fL fL (81.5-99.8) MCH 30.8 pg pg (27.9-34.1) MCHC 35.0 g/dL g/dL (32.4-36.7) RDW 13.1 % % (11.5-15.2) Plt Count 143 10^3/uL L 10^3/uL (150-400) MPV 10.6 fL fL (8.7-11.7) Neut % (Auto) Not Reported Lymph % (Auto) Not Reported Hawkins % (Auto) Not Reported Eos % (Auto) Not Reported Baso % (Auto) Not Reported Nucleat RBC Rel Count Not Reported Absolute Neuts (auto) Not Reported Absolute Lymphs (auto) Not Reported Absolute Monos (auto) Not Reported Absolute Eos (auto) Not Reported Absolute Basos (auto) Not Reported Absolute Nucleated RBC Not Reported Immature Gran % Not Reported Seg Neutrophils % 49.0 % % Band Neutrophils % 0 % % Lymphocytes % 45.0 % % Monocytes % 3.0 % % Eosinophils % 1.0 % % Basophils % 2.0 % % Metamyelocytes % 0 % % Myelocytes % 0 % % Promyelocytes % 0 % % Blast Cells % 0 % % Immature Gran # Not Reported Absolute Seg Neuts 2.47 10^/uL 10^/uL (1.70-6.50) Absolute Band Neuts 0.00 10^3/uL 10^3/uL (0.00-0.70) Absolute Lymphocytes 2.27 10^3/uL 10^3/uL (1.00-3.00) Absolute Monocytes 0.15 10^3/uL L 10^3/uL (0.30-0.80) Absolute Eosinophils 0.05 10^3/uL 10^3/uL (0.03-0.40) Absolute Basophils 0.10 10^3/uL 10^3/uL (0.02-0.10) Absolute Metamyelocyte 0.00 10^3/mL 10^3/mL (0.00-0.00) Absolute Myelocytes 0.00 10^3/mL 10^3/mL (0.00-0.00) Absolute Promyelocytes 0.00 10^3/uL 10^3/uL (0.00-0.00) Absolute Plasma Cells 0.00 10^3/uL 10^3/uL (0.00-0.00) Atypical Lymphocytes 3+ H Absolute Blast Cells 0.00 10^3/uL 10^3/uL (0.00-0.00) Plasma Cells % 0 % % Platelet Estimate DECREASED L (ADEQ) Smear Review By Pending Sodium 141 mEq/L mEq/L (135-145) Potassium 3.7 mEq/L mEq/L (3.3-5.0) Chloride 106 mEq/L mEq/L (97-110) Carbon Dioxide 23 mEq/l mEq/l (22-31) Anion Gap 12 mEq/L mEq/L (8-16) BUN 15 mg/dL mg/dL (7-23) Creatinine 0.7 mg/dL mg/dL (0.6-1.0) Estimated GFR > 60 Glucose 98 mg/dL mg/dL (70-100) Calcium 9.3 mg/dL mg/dL (8.5-10.4) Urine Color PALE YELLOW Urine Appearance CLEAR Urine pH 6.0 (5.0-7.5) Ur Specific Parnell 1.003 (1.002-1.030) Urine Protein NEGATIVE (NEGATIVE) Urine Ketones NEGATIVE (NEGATIVE) Urine Blood NEGATIVE (NEGATIVE) Urine Nitrate NEGATIVE (NEGATIVE) Urine Bilirubin NEGATIVE (NEGATIVE) Urine Urobilinogen NEGATIVE EU EU (0.2-1.0) Ur Leukocyte Esterase NEGATIVE (NEGATIVE) Urine Glucose NEGATIVE (NEGATIVE) Medications Given: Discontinued Medications Acetaminophen (Tylenol) 650 mg PO EDNOW ONE Stop: 09/28/17 19:56 Last Admin: 09/28/17 20:17 Dose: 650 mg Ketorolac Tromethamine (Toradol) 15 mg IVP EDNOW ONE Stop: 09/28/17 21:06 Last Admin: 09/28/17 21:13 Dose: 15 mg Point of Care Test Results: Urine Dip Collection Date 09/28/17 Collection Time 20:30 Specific Parnell (1.002-1.030) 1.005 PH (5.0-7.5) 5.0 Leukocytes (Negative) Negative Nitrites (Negative) Negative Protein (Negative) Negative Glucose (Negative) Negative Ketones (Negative) Negative Urobilnogen (0.2-1.0 EU) 0.2 Bilirubin (Negative) Negative Blood (Negative) Negative Departure - Departure Disposition: Home, Routine, Self-Care Clinical Impression: Acute viral syndrome Condition: Good Instructions: Viral Syndrome (ED) Additional Instructions: Alternate Tylenol and ibuprofen every 3 hr while fever persists. Return for worsening symptoms or any concerns. Referrals: Laurita Joyce MD [Primary Care Provider] - 2-3 days without fail (Call tomorrow morning to make an appointment for Friday.)
[2017-09-28 20:30] LABS: PLATELET COUNT 143 10^3/uL (150-400)
[2017-09-28] MEDS ORDERED: KETOROLAC 15 MG/1 ML SDV IVP ONE (21:05)
[2017-09-28 21:17] VITALS: BP 126/85
== END 2017-09-28 21:25 | disposition home or self-care (01) ==
DX: B34.9 Viral infection, unspecified (principal)
CPT/HCPCS: 96374; J1885

== ENCOUNTER 2017-10-02 08:35 | Emergency (ER) | payer OTHER ==
--- NOTE | 2017-10-02 09:12 | EDPHY ---
H & P Stated Complaint: fever/neck pain/turner x 2 weeks seen previously in ed Time Seen by Provider: 10/02/17 09:12 - Personal History LMP (Females 10-55): 1-7 Days Ago Current Tetanus Diphtheria and Acellular Pertussis (TDAP): Yes - Medical/Surgical History Hx Asthma: No Hx Chronic Respiratory Disease: No Hx Diabetes: No Hx Cardiac Disease: No Hx Renal Disease: No Hx Cirrhosis: No Hx Alcoholism: No Hx HIV/AIDS: No Hx Splenectomy or Spleen Trauma: No Other PMH: BUNIOECTOMY OSTIOTOMY BOTH FEET,. LATERAL COMPARTMENT RELEASE. UMBILICAL HERNIA, - Social History Smoking Status: Never smoked Constitutional: Initial Vital Signs Temperature (C) 37 C 10/02/17 08:38 Heart Rate 95 10/02/17 08:38 Respiratory Rate 18 10/02/17 08:38 Blood Pressure 128/87 H 10/02/17 08:38 O2 Sat (%) 97 10/02/17 08:38 O2 Delivery Mode Room Air Allergies/Adverse Reactions: No Known Allergies Allergy (Verified 10/02/17 08:37) Home Medications: Medication Instructions Recorded NK [No Known Home Meds] 10/02/17 Medical Decision Making - Diagnostics Imaging Results: Imaging Impressions Head CT 10/02/17 09:32 Impression: 1. Normal CT brain without contrast. 2. Consider MRI of the brain, if there is continued clinical concern. Findings and recommendations discussed with Emergency Department physician, Shayne Barkley MD at 11:05 hour, 10/02/2017. Final report concurs with initial preliminary interpretation. Head CTA 10/02/17 09:32 Impression: 1. Normal CT of the carotids and vertebral arteries. 2. No carotid or vertebral dissection, flow-limiting stenosis, or atherosclerotic disease. Measurement of carotid stenosis is based on the residual internal carotid diameter with [place] Symptomatic Carotid Endarterectomy Trial (NASCET) based stenosis levels. CT Angiogram of the Brain Clinical Indications: 2 weeks of headache and fever. Technique: CT angiogram of the brain and neck was performed with the uneventful intravenous administration of 85 mL Isovue-370 contrast. Multiplanar reconstructions including 3D reconstructions performed and evaluated on [employer] workstation in order to better evaluate the [place] vessels. Images were manipulated by the radiologist at the computer workstation. Dose reduction techniques were utilized. Findings: Major vessels of the [place] are adequately displayed, demonstrating no evidence of aneurysm, vascular malformation, flow-limiting stenosis, or occlusion. Bilateral cavernous internal carotid arteries and vertebrobasilar system demonstrates no evidence of flow-limiting stenosis, aneurysm, occlusion, or dissection. Superior sagittal sinus, transverse sinuses , and major veins demonstrate no evidence of intraluminal thrombi. Impression: Negative CT angiogram of the brain. Findings and recommendations discussed with Emergency Department physician, Shayne Barkley MD at 1114 hours, 10/02/2017. Final report concurs with initial preliminary interpretation. Neck CTA 10/02/17 09:45 Impression: 1. Normal CT of the carotids and vertebral arteries. 2. No carotid or vertebral dissection, flow-limiting stenosis, or atherosclerotic disease. Measurement of carotid stenosis is based on the residual internal carotid diameter with [place] Symptomatic Carotid Endarterectomy Trial (NASCET) based stenosis levels. CT Angiogram of the Brain Clinical Indications: 2 weeks of headache and fever. Technique: CT angiogram of the brain and neck was performed with the uneventful intravenous administration of 85 mL Isovue-370 contrast. Multiplanar reconstructions including 3D reconstructions performed and evaluated on [employer] workstation in order to better evaluate the [place] vessels. Images were manipulated by the radiologist at the computer workstation. Dose reduction techniques were utilized. Findings: Major vessels of the [place] are adequately displayed, demonstrating no evidence of aneurysm, vascular malformation, flow-limiting stenosis, or occlusion. Bilateral cavernous internal carotid arteries and vertebrobasilar system demonstrates no evidence of flow-limiting stenosis, aneurysm, occlusion, or dissection. Superior sagittal sinus, transverse sinuses , and major veins demonstrate no evidence of intraluminal thrombi. Impression: Negative CT angiogram of the brain. Findings and recommendations discussed with Emergency Department physician, Shayne Barkley MD at 1114 hours, 10/02/2017. Final report concurs with initial preliminary interpretation. Imaging: Discussed imaging studies w/ freight caller Radiologist, I viewed and interpreted images myself ED Course/Re-evaluation: CHIEF COMPLAINT: Fever, neck pain HISTORY OF PRESENT ILLNESS: The patient is a 37 y/o female complaining of worsening fever, neck pain, and lethargy onset 2 weeks ago. Denies history of recent tick or mosquito bites, recent travel. On 09/28/17, 4 days ago, she presented to this emergency department for similar symptoms but had a normal work up. She did not have imaging studies preformed at this time. Last night the patients fever spiked to 102 degrees, which concerned the patient. Her PCP advised that she present to the emergency department today for a lumbar puncture. Denies headache, chest pain, shortness of breath, abdominal pain, urinary or bowel complaints, numbness , paresthesias. REVIEW OF SYSTEMS: A 10 point review of systems was performed and is negative with the exception of the elements mentioned in the history of present illness. PHYSICAL EXAM: HR, BP, O2 Sat, RR. Temp noted General Appearance: Alert, well hydrated, appropriate, and non-toxic appearing. Head: Atraumatic without scalp tenderness or obvious injury Eyes: Pupils equal, round, reactive to light and accommodation, EOMI, no trauma , no injection. Ears: Clear bilaterally, no perforation, normal landmarks Nose: Atraumatic, no rhinorrhea, clear. Throat: There is no erythema or exudates, no lesions, normal tonsils, mucus membranes moist. Neck: Supple, lateral muscular tenderness with normal ROM, no lymphadenopathy. Respiratory: No retractions, no distress, no wheezes, and no accessory muscle use. Lungs are clear to auscultation bilaterally. Cardiovascular: Regular rate and rhythm, no murmurs, rubs, or gallops. Bilateral carotid, radial, dorsalis pedis, and posterior tibial pulses intact. Good capillary refill all extremities. Gastrointestinal: Abdomen is soft, nontender, non-distended, no masses, no rebound, no guarding, no peritoneal signs. Musculoskeletal: Normal active ROM of all extremities, atraumatic. Neurological: Alert, appropriate, and interactive. The patient has normal DTRs and non-focal cranial nerves, motor, sensory, and cerebellar exam. Skin: No rashes, good turgor, no nodules on palpation. Past medical history: Denies Past surgical history: Bunionectomy, lateral compartment release, umbilical hernia Family history: Denies Social history: Lives in [place], , employed as an [employer] engineer DIAGNOSTICS/PROCEDURES/CRITICAL CARE TIME: Head CT w/o contrast: Normal Head CTA: Normal Neck CTA: Normal DIFFERENTIAL DIAGNOSIS: The differential diagnosis for the patient's fever and neck pain included but was not limited to myalgia, pneumonia, urinary tract infection, viral syndrome, meningitis, and sepsis. MEDICAL DECISION MAKING: The patient is a 37 y/o female presenting with worsening fever, neck pain, and lethargy onset 2 weeks ago. On exam she has lateral neck muscular tenderness with good movement. Patient's neck pain is consistent with myalgia due to the fever, not meningismus. I-stat, head CT without contrast, head and neck CTA ordered. 1113: Spoke with Dr. Zarate, radiologist; patient has normal imaging findings. 1148: Reassessed patient and discussed normal imaging and laboratory findings. I had a 10 minute discussion with the patient regarding the risks and benefits of a lumbar puncture. She has had an LP in the past and is declining one today. 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 I have advised her to follow up with a neurologist for unimproved neck pain. Return precautions provided; patient is comfortable with this plan. - Data Points Laboratory Results: 10/02/17 10/02/17 10/02/17 10:41 10:07 08:35 POC Hgb 12.9 gm/dL gm/dL (12.6-16.3) POC Hct 38 % % (38-47) POC Sodium 142 mEq/L mEq/L (135-145) POC Potassium 3.6 mEq/L mEq/L (3.3-5.0) POC Chloride 106 mEq/L mEq/L (97-110) POC BUN 5 mg/dL L mg/dL (7-23) POC Creatinine 0.6 mg/dL mg/dL (0.6-1.0) POC Glucose 104 mg/dL H mg/dL (70-100) POC Troponin I 0.02 ng/mL ng/mL (0.00-0.08) Beta HCG, Qual NEGATIVE Point of Care Test Results: Chemistry 10/02/17 10/02/17 10:41 10:07 POC Sodium 142 mEq/L mEq/L (135-145) POC Potassium 3.6 mEq/L mEq/L (3.3-5.0) POC Chloride 106 mEq/L mEq/L (97-110) POC BUN 5 mg/dL L mg/dL (7-23) POC Creatinine 0.6 mg/dL mg/dL (0.6-1.0) POC Glucose 104 mg/dL H mg/dL (70-100) POC Troponin I 0.02 ng/mL ng/mL (0.00-0.08) ISTAT H&H 10/02/17 10:07 POC Hgb 12.9 gm/dL gm/dL (12.6-16.3) POC Hct 38 % % (38-47) Departure - Departure Disposition: Home, Routine, Self-Care Clinical Impression: Myalgia, Neck pain Fever Qualifiers: Fever type: due to other condition Qualified Code(s): R50.81 - Fever presenting with conditions classified elsewhere Condition: Good Instructions: Fever in Adults (ED), Musculoskeletal Pain (ED), Acute Neck Pain (ED) Additional Instructions: 1. Take Valtrex as prescribed. 2. Follow up with a neurologist for unimproved symptoms. You have been referred to the heritage consultant physician, Dr. Carpio. 3. Followup with your primary physician within one week for reevaluation. 4. Return to the emergency department immediately for severe pain, numbness, weakness, tingling, headache, difficulty walking or other complaints. 5. Take ibuprofen and Tylenol as directed. Referrals: Laurita Joyce MD [Primary Care Provider] - As per Instructions Report Scribed for: Shayne Barkley Report Scribed by: Linette Lyles Date of Report: 10/02/17 Time of Report: 10:59
[2017-10-02] MEDS ORDERED: IOPAMIDOL (ISOVUE 370) 100 ML BTL IV ONE (10:31)
[2017-10-02 11:59] VITALS: BP 111/79
== END 2017-10-02 12:28 | disposition home or self-care (01) ==
DX: R50.9 Fever, unspecified (principal); M79.1 Myalgia; M54.2 Cervicalgia
CPT/HCPCS: 82435-PO; 82565-PO; 82947-PO; 84132-PO; 84295-PO; 84484-PO; 84520-PO; 85014-PO; Q9967